=== PATIENT | female | born 1985 | race Caucasian/White ===

== ENCOUNTER 2017-10-26 11:40 | Inpatient (IN) | payer MEDICAID ==
[2017-10-26] MEDS: LACTATED RINGER'S 1,000 ML IV ×2 (12:24→17:59)
[2017-10-26 12:26] LABS: ADD MAN DIFF? NO
[2017-10-26 12:28] LABS: WHITE BLOOD COUNT 13.1 10^3/ul (4.8-10.8)
[2017-10-26 12:28] LABS: BASOPHILS % 0.2 % (0.0-2.0); EOSINOPHILS # 0.1 10^3/ul (0.0-0.5); EOSINOPHILS % 0.8 % (0.0-7.0); HEMATOCRIT 38.5 % (37.0-47.0); HEMOGLOBIN 12.4 g/dl (12.0-16.0); LYMPHOCYTES # 3.3 10^3/ul (0.8-2.9); LYMPHOCYTES % 25.3 % (15.0-51.0); MEAN CORPUSCULAR HGB CONC 32.2 g/dl (32.0-37.0); MEAN CORPUSCULAR VOLUME 77.6 fl (82.0-101.0); MONOCYTE # 1.1 10^3/ul (0.3-0.9); MONOCYTES % 8.2 % (0.0-11.0); NEUTROPHIL # 8.5 10^3/ul (1.6-7.5); PLATELET COUNT 254 10^3/UL (140-415); RED BLOOD COUNT 4.96 10^6/ul (4.20-5.40); RED CELL DISTRIBUTION WIDTH 18.3 % (11.5-14.5)
[2017-10-26 13:15] LABS: ADD UMIC NO; UR ASCORBIC ACID NEGATIVE (NEGATIVE); UR BILIRUBIN (Dip) NEGATIVE (NEGATIVE); UR BLOOD (Dip) NEGATIVE (NEGATIVE); UR CLARITY SLIGHTLY CLOUDY (CLEAR); UR COLOR STRAW (YELLOW); UR GLUCOSE (Dip) NEGATIVE (NEGATIVE); UR KETONES (Dip) NEGATIVE (NEGATIVE); UR LEUKOCYTE ESTERASE (Dip) NEGATIVE Leu/ul (NEGATIVE); UR NITRITE (Dip) NEGATIVE (NEGATIVE); UR RBC 0 /HPF (0-5); UR SPECIFIC GRAVITY (Dip) 1.001 (1.003-1.030); UR SQUAMOUS EPITHELIAL CELL FEW /HPF (FEW); UR TOTAL PROTEIN (Dip) NEGATIVE (NEGATIVE); UR UROBILINOGEN (Dip) NEGATIVE (NEGATIVE); UR WBC 1 /HPF (0-5)
[2017-10-27] MEDS: LACTATED RINGER'S 1,000 ML IV ×3 (03:12→19:46)
[2017-10-27] MEDS: MAGNESIUM SULFATE 4 GM/100 ML 100 ML IVPB (08:49)
[2017-10-27] MEDS: BETAMET NA PHOS/AC(6 MG/ML) 5ML INJ IM (08:50)
[2017-10-27] MEDS: MAGNESIUM SULFATE 20 GM/500 ML 500 ML IV ×2 (09:19→18:51)
[2017-10-27] MEDS: CLINDAMYCIN 600 MG/D5W (PMX) 50 ML IVPB ×2 (10:30→18:29)
[2017-10-27 12:41] LABS: ADD MAN DIFF? NO
[2017-10-27 12:49] LABS: WHITE BLOOD COUNT 12.2 10^3/ul (4.8-10.8)
[2017-10-27 12:49] LABS: BASOPHILS % 0.2 % (0.0-2.0); EOSINOPHILS % 0.1 % (0.0-7.0); HEMATOCRIT 38.5 % (37.0-47.0); HEMOGLOBIN 12.4 g/dl (12.0-16.0); LYMPHOCYTES # 1.6 10^3/ul (0.8-2.9); LYMPHOCYTES % 12.8 % (15.0-51.0); MEAN CORPUSCULAR HEMOGLOBIN 25.5 pg (29.0-33.0); MEAN CORPUSCULAR HGB CONC 32.2 g/dl (32.0-37.0); MEAN CORPUSCULAR VOLUME 79.2 fl (82.0-101.0); MONOCYTE # 0.2 10^3/ul (0.3-0.9); MONOCYTES % 1.8 % (0.0-11.0); NEUTROPHIL # 10.3 10^3/ul (1.6-7.5); NEUTROPHILS % 84.6 % (39.0-77.0); PLATELET COUNT 254 10^3/UL (140-415); RED BLOOD COUNT 4.86 10^6/ul (4.20-5.40); RED CELL DISTRIBUTION WIDTH 18.2 % (11.5-14.5)
[2017-10-27 13:03] LABS: ALANINE AMINOTRANSFERASE 18 IU/L (13-69); ALBUMIN 3.4 g/dl (3.3-4.9); ALBUMIN/GLOBULIN RATIO 1.03; ALKALINE PHOSPHATASE 82 IU/L (42-121); ANION GAP 13 (8-16); ASPARTATE AMINO TRANSFERASE 23 IU/L (15-46); BILIRUBIN,INDIRECT 0.1 mg/dl (0-1.1); BILIRUBIN,TOTAL 0.1 mg/dl (0.2-1.3); BLOOD UREA NITROGEN 3 mg/dl (7-20); CALCIUM 8.2 mg/dl (8.4-10.2); CARBON DIOXIDE 21 mmol/L (21-31); CHLORIDE 108 mmol/L (97-110); CREATININE 0.46 mg/dl (0.44-1.00); GLUCOSE 133 mg/dl (70-220); SODIUM 138 mmol/L (135-144); TOTAL PROTEIN 6.7 g/dl (6.1-8.1)
[2017-10-27 14:54] LABS: MAGNESIUM 4.6 mg/dl (1.7-2.5)
[2017-10-28] MEDS: CLINDAMYCIN 600 MG/D5W (PMX) 50 ML IVPB ×4 (00:45→17:32)
[2017-10-28] MEDS: LACTATED RINGER'S 1,000 ML IV ×3 (03:46→20:47)
[2017-10-28] MEDS: MAGNESIUM SULFATE 20 GM/500 ML 500 ML IV ×3 (04:23→13:54)
[2017-10-28 07:03] LABS: MAGNESIUM 5.2 mg/dl (1.7-2.5)
[2017-10-28] MEDS: BETAMET NA PHOS/AC(6 MG/ML) 5ML INJ IM (08:26)
[2017-10-28 12:41] LABS: MAGNESIUM 5.3 mg/dl (1.7-2.5)
[2017-10-29] MEDS: CLINDAMYCIN 600 MG/D5W (PMX) 50 ML IVPB ×5 (00:01→23:46)
[2017-10-29] MEDS: MAGNESIUM SULFATE 20 GM/500 ML 500 ML IV (00:05)
[2017-10-29 01:23] LABS: MAGNESIUM 4.8 mg/dl (1.7-2.5)
[2017-10-29] MEDS: LACTATED RINGER'S 1,000 ML IV ×3 (03:46→19:46)
[2017-10-29 06:52] LABS: MAGNESIUM 5.4 mg/dl (1.7-2.5)
[2017-10-30] MEDS: LACTATED RINGER'S 1,000 ML IV (02:54)
[2017-10-30] MEDS: CLINDAMYCIN 600 MG/D5W (PMX) 50 ML IVPB ×2 (05:50→12:47)
== END 2017-10-30 15:35 | disposition home or self-care (01) | DRG 782 ==
LOC: L-D 11:40 → PP1 10-28 15:04 → L-D 15:33
DX: O26.872 Cervical shortening, second trimester (principal); O60.02 Preterm labor without delivery, second trimester; Z3A.22 22 weeks gestation of pregnancy
CPT/HCPCS: 80053; 81001; 81003; 83735; 85025

== ENCOUNTER 2018-01-17 05:07 | Inpatient (IN) | payer MEDICAID ==
[2018-01-17 07:13] LABS: ADD UMIC YES; UR ASCORBIC ACID NEGATIVE (NEGATIVE); UR BACTERIA FEW /HPF (NONE SEEN); UR BILIRUBIN (Dip) NEGATIVE (NEGATIVE); UR BLOOD (Dip) 1+ mg/dL (NEGATIVE); UR CLARITY CLEAR (CLEAR); UR COLOR YELLOW (YELLOW); UR GLUCOSE (Dip) NEGATIVE (NEGATIVE); UR KETONES (Dip) NEGATIVE (NEGATIVE); UR LEUKOCYTE ESTERASE (Dip) NEGATIVE Leu/ul (NEGATIVE); UR NITRITE (Dip) NEGATIVE (NEGATIVE); UR RBC 0 /HPF (0-5); UR SPECIFIC GRAVITY (Dip) 1.005 (1.003-1.030); UR SQUAMOUS EPITHELIAL CELL FEW /HPF (FEW); UR TOTAL PROTEIN (Dip) NEGATIVE (NEGATIVE); UR UROBILINOGEN (Dip) NEGATIVE (NEGATIVE); UR WBC 2 /HPF (0-5)
[2018-01-17] MEDS ORDERED: MAGNESIUM SULFATE 4 GM/100 ML 100 ML (14:57)
[2018-01-17] MEDS: MAGNESIUM SULFATE 4 GM/100 ML 100 ML IV (15:07)
[2018-01-17] MEDS: LACTATED RINGER'S 1,000 ML IV ×2 (15:10→23:23)
[2018-01-17] MEDS: CLINDAMYCIN 900 MG/D5W (PMX) 50 ML IVPB ×2 (15:12→21:08)
[2018-01-17 15:27] LABS: ADD MAN DIFF? NO
[2018-01-17] MEDS: MAGNESIUM SULFATE 20 GM/500 ML 500 ML IV (15:42)
[2018-01-17] MEDS: BETAMET NA PHOS/AC(6 MG/ML) 2 ML INJ SYG IM (16:22)
[2018-01-17 16:24] LABS: HEPATITIS B SURFACE ANTIGEN NEGATIVE (NEGATIVE)
[2018-01-17 16:41] LABS: WHITE BLOOD COUNT 11.5 10^3/ul (4.8-10.8)
[2018-01-17 16:41] LABS: BASOPHILS % 0.2 % (0.0-2.0); EOSINOPHILS # 0.1 10^3/ul (0.0-0.5); EOSINOPHILS % 0.9 % (0.0-7.0); HEMATOCRIT 41.6 % (37.0-47.0); HEMOGLOBIN 13.8 g/dl (12.0-16.0); LYMPHOCYTES # 2.9 10^3/ul (0.8-2.9); LYMPHOCYTES % 25.3 % (15.0-51.0); MEAN CORPUSCULAR HEMOGLOBIN 27.9 pg (29.0-33.0); MEAN CORPUSCULAR HGB CONC 33.2 g/dl (32.0-37.0); MEAN CORPUSCULAR VOLUME 84.2 fl (82.0-101.0); MEAN PLATELET VOLUME 10.1 fl (7.4-10.4); MONOCYTE # 0.9 10^3/ul (0.3-0.9); NEUTROPHIL # 7.5 10^3/ul (1.6-7.5); NEUTROPHILS % 64.7 % (39.0-77.0); PLATELET COUNT 234 10^3/UL (140-415); RED BLOOD COUNT 4.94 10^6/ul (4.20-5.40); RED CELL DISTRIBUTION WIDTH 15.2 % (11.5-14.5)
[2018-01-17 17:00] LABS: INR 0.93; PROTIME 12.6 Sec (11.9-14.9)
[2018-01-17 22:39] LABS: RAPID PLASMA REAGIN NONREACTIVE (NR)
[2018-01-18 01:19] LABS: MAGNESIUM 5.1 mg/dl (1.7-2.5)
[2018-01-18] MEDS: CLINDAMYCIN 900 MG/D5W (PMX) 50 ML IVPB ×4 (02:50→21:03)
[2018-01-18] MEDS: MAGNESIUM SULFATE 20 GM/500 ML 500 ML IV ×2 (02:51→13:17)
[2018-01-18] MEDS: PRENATAL VITAMIN PO (08:47)
[2018-01-18] MEDS: FERROUS SULFATE (EC) 325 MG TAB PO (08:47)
[2018-01-18 14:02] LABS: MAGNESIUM 4.6 mg/dl (1.7-2.5)
[2018-01-18] MEDS: LACTATED RINGER'S 1,000 ML IV (14:55)
[2018-01-18] MEDS: BETAMET NA PHOS/AC(6 MG/ML) 2 ML INJ SYG IM (16:24)
[2018-01-19] MEDS: LACTATED RINGER'S 1,000 ML IV ×3 (00:59→13:52)
[2018-01-19] MEDS: CLINDAMYCIN 900 MG/D5W (PMX) 50 ML IVPB ×4 (03:03→21:01)
[2018-01-19] MEDS: PRENATAL VITAMIN PO (09:14)
[2018-01-19] MEDS: FERROUS SULFATE (EC) 325 MG TAB PO (09:14)
[2018-01-20] MEDS: LACTATED RINGER'S 1,000 ML IV ×5 (01:10→22:34)
[2018-01-20] MEDS: CLINDAMYCIN 900 MG/D5W (PMX) 50 ML IVPB ×4 (03:21→21:16)
[2018-01-20] MEDS: FERROUS SULFATE (EC) 325 MG TAB PO (08:42)
[2018-01-20] MEDS: PRENATAL VITAMIN PO (08:42)
[2018-01-21] MEDS: CLINDAMYCIN 900 MG/D5W (PMX) 50 ML IVPB (03:16)
[2018-01-21] MEDS: LACTATED RINGER'S 1,000 ML IV (05:45)
== END 2018-01-21 09:10 | disposition home or self-care (01) | DRG 832 ==
LOC: OBT 05:07 → PP1 01-20 15:38 → L-D 05:08 → OBT 10:44 → L-D 10:36
DX: O46.93 Antepartum hemorrhage, unspecified, third trimester (principal); O26.873 Cervical shortening, third trimester; Z3A.34 34 weeks gestation of pregnancy
CPT/HCPCS: 76815; 76817; 76818; 81001; 83735; 85025; 85610; 85730; 86592; 86850; 86900; 86901; 87340

== ENCOUNTER 2018-02-09 02:45 | Inpatient (IN) | payer MEDICAID ==
[2018-02-09] MEDS ORDERED: OXYTOCIN 30 UNITS/LR 500 ML IV ×5 (03:30→19:30)
[2018-02-09] MEDS ORDERED: CARBOPROST 250 MCG INJ IM ×3 (03:30→19:30)
[2018-02-09] MEDS ORDERED: LIDOCAINE 1% (MPF) 30 ML INJ INJ ×2 (03:30→04:30)
[2018-02-09] MEDS ORDERED: METHYLERGONOVINE 0.2 MG INJ IM ×3 (03:30→19:30)
[2018-02-09] MEDS ORDERED: MISOPROSTOL 200 MCG TAB PR ×3 (03:30→19:30)
[2018-02-09 03:54] LABS: ADD MAN DIFF? NO
[2018-02-09] MEDS: BUTORPHANOL 2 MG INJ IV (03:55)
[2018-02-09] MEDS: LACTATED RINGER'S 1,000 ML IV ×2 (03:55→05:21)
[2018-02-09 04:16] LABS: WHITE BLOOD COUNT 16.6 10^3/ul (4.8-10.8)
[2018-02-09 04:16] LABS: BASOPHILS % 0.2 % (0.0-2.0); EOSINOPHILS % 0.1 % (0.0-7.0); HEMATOCRIT 41.9 % (37.0-47.0); HEMOGLOBIN 14.3 g/dl (12.0-16.0); LYMPHOCYTES # 1.9 10^3/ul (0.8-2.9); LYMPHOCYTES % 11.7 % (15.0-51.0); MEAN CORPUSCULAR HEMOGLOBIN 28.4 pg (29.0-33.0); MEAN CORPUSCULAR HGB CONC 34.1 g/dl (32.0-37.0); MEAN CORPUSCULAR VOLUME 83.3 fl (82.0-101.0); MEAN PLATELET VOLUME 10.3 fl (7.4-10.4); MONOCYTE # 1.2 10^3/ul (0.3-0.9); MONOCYTES % 7.4 % (0.0-11.0); NEUTROPHIL # 13.2 10^3/ul (1.6-7.5); PLATELET COUNT 201 10^3/UL (140-415); RED BLOOD COUNT 5.03 10^6/ul (4.20-5.40); RED CELL DISTRIBUTION WIDTH 14.1 % (11.5-14.5)
[2018-02-09 04:20] LABS: INR 0.93; PROTIME 12.6 Sec (11.9-14.9)
[2018-02-09 04:21] LABS: PARTIAL THROMBOPLASTIN TIME 30.3 Sec (23.0-35.0)
[2018-02-09] MEDS: CLINDAMYCIN 900 MG/D5W (PMX) 50 ML IVPB (04:44)
[2018-02-09 04:55] LABS: HEPATITIS B SURFACE ANTIGEN NEGATIVE (NEGATIVE)
[2018-02-09] MEDS ORDERED: NALOXONE (0.4 MG/ML) INJ IV (05:00)
[2018-02-09] MEDS ORDERED: ONDANSETRON 4 MG INJ IV (05:00)
[2018-02-09] MEDS ORDERED: ZOLPIDEM 5 MG TAB PO ×2 (05:00→19:30)
[2018-02-09] MEDS ORDERED: DIPHENHYDRAMINE 50 MG INJ IV (05:00)
[2018-02-09] MEDS ORDERED: HYDROmorphONE 0.5 MG/0.5 ML SYG IV ×2 (05:00)
[2018-02-09] MEDS ORDERED: FENTAnyl 2MCG/ML-ROPIV 0.2% 100 ML BAG EPI (05:00)
[2018-02-09] MEDS ORDERED: FENTAnyl 2MCG/ML-ROPIV 0.2% 100 ML (05:14)
[2018-02-09] MEDS ORDERED: CEFAZOLIN 1 GM/50 ML (PMX) 50 ML IVPB (06:00)
[2018-02-09] MEDS ORDERED: LIDOCAINE 1% (MPF) 30 ML INJ (11:18)
[2018-02-09] MEDS: MINERAL OIL LIGHT 10 ML VIAL TOP (12:09)
[2018-02-09] MEDS: OXYTOCIN 30 UNITS/LR 500 ML IV ×4 (12:29→19:19)
[2018-02-09] MEDS ORDERED: DIPHENHYDRAMINE 25 MG CAP PO (19:30)
[2018-02-09] MEDS ORDERED: ACETAMINOPHEN 325 MG TAB PO (19:30)
[2018-02-09] MEDS ORDERED: MAGNESIUM HYDROXIDE 30ML CUP PO (19:30)
[2018-02-09] MEDS ORDERED: SENNA/DOCUSATE NA (8.6MG/50MG) TAB PO (19:30)
[2018-02-09] MEDS: LACTATED RINGER'S 1,000 ML IV* (20:00)
[2018-02-09 20:31] LABS: RAPID PLASMA REAGIN NONREACTIVE (NR)
[2018-02-09] MEDS: WITCH HAZEL/GLYCERIN PAD PR (21:06)
[2018-02-09] MEDS: BENZOCAINE 20% 56 ML SPRAY TOP (21:06)
[2018-02-09] MEDS: IBUPROFEN 800 MG TAB PO (23:23)
[2018-02-09] MEDS: HYDROCODONE/APAP (5/325) TAB PO (23:28)
[2018-02-10 07:59] LABS: ADD MAN DIFF? NO
[2018-02-10 08:01] LABS: WHITE BLOOD COUNT 17.1 10^3/ul (4.8-10.8)
[2018-02-10 08:01] LABS: BASOPHILS % 0.2 % (0.0-2.0); EOSINOPHILS # 0.1 10^3/ul (0.0-0.5); EOSINOPHILS % 0.6 % (0.0-7.0); HEMATOCRIT 37.8 % (37.0-47.0); HEMOGLOBIN 12.7 g/dl (12.0-16.0); LYMPHOCYTES # 3.5 10^3/ul (0.8-2.9); LYMPHOCYTES % 20.2 % (15.0-51.0); MEAN CORPUSCULAR HEMOGLOBIN 28.3 pg (29.0-33.0); MEAN CORPUSCULAR HGB CONC 33.6 g/dl (32.0-37.0); MEAN CORPUSCULAR VOLUME 84.4 fl (82.0-101.0); MEAN PLATELET VOLUME 9.4 fl (7.4-10.4); NEUTROPHIL # 12.4 10^3/ul (1.6-7.5); NEUTROPHILS % 72.5 % (39.0-77.0); PLATELET COUNT 168 10^3/UL (140-415); RED BLOOD COUNT 4.48 10^6/ul (4.20-5.40); RED CELL DISTRIBUTION WIDTH 14.6 % (11.5-14.5)
[2018-02-10] MEDS: LACTATED RINGER'S 1,000 ML IV* ×3 (11:19→21:07)
[2018-02-10] MEDS: HYDROCODONE/APAP (5/325) TAB PO (20:06)
[2018-02-11] MEDS: LACTATED RINGER'S 1,000 ML IV* (03:19)
[2018-02-11] MEDS: HYDROCODONE/APAP (5/325) TAB PO (04:43)
[2018-02-11] MEDS: MEASLES,MUMPS,RUBELLA VACCINE INJ SC* (09:00)
[2018-02-11] MEDS: VARICELLA VACCINE LIVE/PF 1,350 UNIT/0.5 ML ML SC* (09:00)
[2018-02-11] MEDS: DIPHTH/TET/ACEL PERTUSS (ADULT) 0.5 ML VIAL IM* (09:00)
[2018-02-11] MEDS: LANOLIN 7 GM TUBE TOP (11:34)
[2018-02-11] MEDS: BENZOCAINE 20% 56 ML SPRAY TOP (11:34)
== END 2018-02-11 12:40 | disposition home or self-care (01) | DRG 833 ==
LOC: OBT 02:45 → L-D 02:46 → OBT 03:02 → L-D 03:02 → PP1 18:46
PROVIDERS: Obstetrics & Gynecology
PROC: 10E0XZZ Delivery of Products of Conception, External Approach (ICD-10-PCS; principal; 2018-02-09)
DX: O46.93 Antepartum hemorrhage, unspecified, third trimester (principal); Z3A.37 37 weeks gestation of pregnancy
CPT/HCPCS: 62319; 76815; 76818; 85025; 85610; 85730; 86592; 86850; 86900; 86901; 87340; 90686; 90716; 99464